=== PATIENT | female | born 1955 | race Caucasian/White ===

== ENCOUNTER 2021-09-13 09:38 | Outpatient (CLI) | payer MEDICARE, SELFPAY ==
--- NOTE | ~2021-09-13 | XR_ITS ---
XR knee LT 3V DATE: 09/13/2021 10:27 INDICATION: Anterior distal left knee pain for one year. Knee catches. TECHNIQUE: AP, lateral and sunrise views COMPARISON: None FINDINGS: There is tricompartment osteophytes, most pronounced at the medial compartment with moderat marybeth severe loss of medial compartment joint space. There is periarticular spurring at all 3 compartme nts. There is suggestion of mild suprapatellar knee joint effusion. No fracture or dislocation, periosteal reaction or bone destruction, radiopaque intra-articular loose body or chondrocalcinosis is evident. 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 IMPRESSION: Tricompartment osteoarthritis, most prominent at the medial compart ment Suggestion of mild suprapatellar joint effusion
== END 2021-09-13 09:39 | disposition home or self-care (01) ==
PROVIDERS: PCP Nurse Practitioner Family
DX: M17.12 Unilateral primary osteoarthritis, left knee (principal); M25.542 Pain in joints of left hand
CPT/HCPCS: 73562

== ENCOUNTER 2021-09-19 14:58 | Outpatient (RCR) | payer MEDICARE, SELFPAY ==
--- NOTE | 2021-09-20 06:45 | PTOPEVAL ---
Thank you for referring Palma Clement to [facility].? The patient is scheduled to be seen for therapy? __1__x/week for 4 visits. Please review, sign, date and return this plan of care DAISY. I agree with and certify that the following plan of care is medically necessary. Referring Physician Date Admitting Provider: Attending Provider: Pratik Sheth, MD Referring Provider: *PT Outpatient Evaluation Start: 09/19/21 15:04 Freq: Status: Active Protocol: Document 09/19/21 15:04 SARAH (Rec: 09/19/21 16:09 SARAH [email or web address]) Therapy Assessment Status Assessment Status Assessment Status Evaluation Evaluation Information Problem Diagnosis Cervical and Lumbar Stenosis Onset 07/12/21 Additional Evaluation Detail Oswestry = 56 % Functionally Declined NDI = 40% Functionally Declined Subjective Information Pt reports that she has been Query Text:As Reported By Patient/ living with pain in her neck Family for twenty years. Her low back began hurting over the past year and a half. She states that her pain is better when sitting but begins to get worse when standing. She can only tolerate standing for 10 minutes. Her back bothers her more than her neck, which keeps her from getting her own house work done. The majority of her pain is in her L glute and goes down her posterior thighs b/l on occasion. 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 Pain Assessment Timing of Pain Assessment Timing of Pain Assessment Pre-Treatment Pain Scale Pain Scale Used Numeric (1 - 10) Self Report Pain Assessment Neck Reported Pain Level 6 Pain Description Aching,Dull Back Reported Pain Level 7 Pain Description Spasms Greatest Pain Intensity 10 Pain Score Pain Score 7,6: Self Report Additional Pain Score Comments Pain is worse with spinal exension in cervical and lumbar spine Interventions Used Interventions Used By Clinicians Education,Exercise Cervical and Lum
== END 2021-10-09 10:06 | disposition home or self-care (01) ==
LOC: CHSPT 14:58
PROVIDERS: Visit Provider Anesthesiology Pain Medicine
DX: M54.2 Cervicalgia (principal)
CPT/HCPCS: 97014; 97110; 97140; 97161; 97162; G0283

== ENCOUNTER 2021-10-25 10:44 | Outpatient (CLI) | payer MEDICARE, SELFPAY ==
[2021-10-25 11:16] LABS: Basophils Absolute Auto 0.03 K/mm3 (0.00-0.10); Basophils Percent Auto 0.3 % (0.0-1.0); Eosinophils Absolute Auto 0.32 K/mm3 (0.02-0.50); Eosinophils Percent Auto 3.6 % (1.0-6.0); Hematocrit 47.4 % (35.0-42.0); Hemoglobin 15.7 g/dL (11.7-13.8); Immature Granulocyte Absolute 0.02 K/mm3 (0.00-0.00); Immature Granulocyte Percent A 0.2 % (0.0-0.0); Lymphocytes Absolute Auto 2.28 K/mm3 (1.10-4.50); Lymphocytes Percent Auto 25.8 % (18.0-42.0); Mean Corpuscular HGB Conc 33.1 g/dL (32.0-36.0); Mean Corpuscular Volume 93.7 fL (78.0-102.0); Mean Platelet Volume 9.8 fl (9.2-11.8); Monocytes Absolute Auto 0.74 K/mm3 (0.10-0.90); Monocytes Percent Auto 8.4 % (2.0-11.0); Neutrophils Absolute Auto 5.4 K/mm3 (1.7-7.2); Neutrophils Percent Auto 61.7 % (50.0-70.0); Platelet Count Result 258 K/mm3 (150-420); Red Blood Count 5.06 M/mm3 (4.20-5.40); Red Cell Distribution Width 12.9 % (11.6-14.4); White Blood Count 8.8 K/mm3 (4.8-10.8)
[2021-10-25 11:48] LABS: Alanine Aminotransferase 49 U/L (14-59); Albumin Level 4.2 g/dL (3.4-5.0); Alkaline Phosphatase 75 U/L (46-116); Anion Gap 7 mmol/L (8-16); Aspartate Amino Transferase 43 U/L (15-37); Bilirubin,Total 0.6 mg/dL (0.00-1.00); Blood Urea Nitrogen 24 mg/dL (7-18); Carbon Dioxide 27 mmol/L (21-32); Chloride 103 mmol/L (98-108); Cholesterol 149 mg/dL (0-200); Estimated Glomerular Filt Rate > 60; Glucose 109 mg/dL (70-99); HDL Direct 36 mg/dL (40-60); LDL Cholesterol Calculated 35 mg/dL (<130); Osmolality Calculated 289 mOsm/kg (285-295); Potassium 5.1 mmol/L (3.5-5.1); Sodium 137 mmol/L (136-145); Thyroid Stimulating Hormone 0.66 uIU/mL (0.36-3.74); Total Protein 7.3 g/dL (6.4-8.2); Triglycerides 388 mg/dL (0-150)
== END 2021-10-25 10:45 | disposition home or self-care (01) ==
LOC: CHSLAB 10:48
PROVIDERS: PCP Nurse Practitioner Family; Visit Provider Nurse Practitioner Family
DX: E78.5 Hyperlipidemia, unspecified (principal); E03.9 Hypothyroidism, unspecified
CPT/HCPCS: 36415; 80053; 80061; 84443; 85025